=== PATIENT | female | born 1940 | race Caucasian/White ===

== ENCOUNTER 2019-05-22 23:48 | Inpatient (IN) ==
[2019-05-23] MEDS ORDERED: Potassium Chloride 20 MEQ, Lidocaine 1% 2 ML in 0.9 % Sodium Chloride 250 ML IVPB ONE (05:19)
[2019-05-23] MEDS ORDERED: Ondansetron 4 MG/2 ML VIAL IVP PRN ×2 (05:21→18:33)
[2019-05-23] MEDS ORDERED: Acetaminophen 325 MG TABLET PO PRN (05:21)
[2019-05-23] MEDS ORDERED: Naloxone 0.4 MG/ML INJ IVP PRN (05:21)
[2019-05-23] MEDS ORDERED: 0.9 % Sodium Chloride 1,000 ML IVC SCH (05:30)
[2019-05-23 06:15] LABS: Hematocrit 42.6 % (35.3-44.9); Hemoglobin 13.9 g/dL (11.5-15.4); Mean Corpuscular HGB Conc 32.6 g/dL (31.6-35.5); Mean Corpuscular Hemoglobin 29.3 pg (28.0-33.3); Mean Corpuscular Volume 89.7 fL (83.0-100.0); Mean Platelet Volume 10.7 fL (9.4-12.4); Platelet Count 131 K/mcL (140-400); Red Blood Count 4.75 M/mcL (3.82-4.97); Red Cell Distribution Width 13.3 % (11.5-14.5); White Blood Count 12.8 K/mcL (4.3-11.1)
[2019-05-23 06:45] LABS: BUN/Creatinine Ratio 18 (6-26); Blood Urea Nitrogen 11 mg/dL (8-23); Calcium 9.9 mg/dL (8.6-10.3); Carbon Dioxide 28 mEq/L (23-29); Chloride 102 mEq/L (98-107); Glucose 138 mg/dL (70-105); Osmolality,Calculated 288 (280-300); Potassium 4.8 mEq/L (3.5-5.1); Sodium 138 mEq/L (136-145); eGFR For African Americans > 60 (> 60); eGFR For Non-African Americans > 60 (> 60)
[2019-05-23] MEDS: tiZANidine 4 MG TABLET PO SCH ×3 (11:22→20:45)
[2019-05-23] MEDS ORDERED: tiZANidine 4 MG TABLET PO SCH (15:00)
[2019-05-23] MEDS: *HR* Heparin 5,000 UNIT/ML VIAL SQ SCH (16:25)
[2019-05-23] MEDS ORDERED: *HR* Promethazine 25 MG/ML VIAL IVP PRN (18:35)
[2019-05-24] MEDS: *HR* Heparin 5,000 UNIT/ML VIAL SQ SCH ×2 (05:51→17:35)
[2019-05-24 06:31] LABS: Hemoglobin 12.4 g/dL (11.5-15.4); Mean Corpuscular HGB Conc 32.6 g/dL (31.6-35.5); Mean Platelet Volume 10.5 fL (9.4-12.4); Platelet Count 177 K/mcL (140-400); Red Blood Count 4.13 M/mcL (3.82-4.97); Red Cell Distribution Width 13.6 % (11.5-14.5); White Blood Count 10.1 K/mcL (4.3-11.1)
[2019-05-24 06:40] LABS: INR 1.1; Prothrombin Time 12.2 Seconds (9.4-12.1)
[2019-05-24 06:49] LABS: BUN/Creatinine Ratio 21 (6-26); Blood Urea Nitrogen 13 mg/dL (8-23); Calcium 9.4 mg/dL (8.6-10.3); Carbon Dioxide 27 mEq/L (23-29); Chloride 101 mEq/L (98-107); Glucose 110 mg/dL (70-105); Osmolality,Calculated 277 (280-300); Potassium 4.2 mEq/L (3.5-5.1); Sodium 133 mEq/L (136-145); eGFR For African Americans > 60 (> 60); eGFR For Non-African Americans > 60 (> 60)
[2019-05-24] MEDS ORDERED: *HR* Succinylcholine 200 MG/10 ML VIAL IVP ONE (07:15)
[2019-05-24] MEDS ORDERED: Dexamethasone 4 MG/ML VIAL ONE (07:15)
[2019-05-24] MEDS ORDERED: Lidocaine -MPF 2% 2 ML VIAL ONE (07:15)
[2019-05-24] MEDS ORDERED: Ondansetron 4 MG/2 ML VIAL ONE (07:15)
[2019-05-24] MEDS ORDERED: *HR* FentaNYL (PF) 100 MCG/2 ML VIAL ONE (07:17)
[2019-05-24] MEDS ORDERED: *HR* Propofol 200 MG/20 ML VIAL IVP ONE (07:17)
[2019-05-24] MEDS ORDERED: ceFAZolin 2,000 MG in Water for inj. (sterile) 20 ML IVP ONE (08:20)
[2019-05-24] MEDS ORDERED: EPHEDrine 50 MG/ML VIAL ONE (08:35)
[2019-05-24] MEDS ORDERED: *HR* PHENYLEPHRINE 1,000 MCG/10 ML SYRINGE IVP ONE (08:37)
[2019-05-24] MEDS ORDERED: Ondansetron 4 MG/2 ML VIAL IVP ONE (08:50)
[2019-05-24] MEDS ORDERED: Albuterol 2.5 MG/3 ML NEBULIZER IH ONE (08:50)
[2019-05-24] MEDS ORDERED: amLODIPine 5 MG TABLET PO SCH (09:00)
[2019-05-24 09:34] LABS: Hematocrit 37.4 % (35.3-44.9); Hemoglobin 11.9 g/dL (11.5-15.4)
[2019-05-24] MEDS ORDERED: *HR* HYDROcodone/Acet 5/325 mg TABLET PO PRN (09:48)
[2019-05-24] MEDS ORDERED: Naloxone 0.4 MG/ML INJ IVP PRN (09:48)
[2019-05-24] MEDS ORDERED: Ondansetron 4 MG/2 ML VIAL IVP PRN (09:48)
[2019-05-24] MEDS ORDERED: Acetaminophen 325 MG TABLET PO PRN (09:48)
[2019-05-24] MEDS: tiZANidine 4 MG TABLET PO SCH ×3 (14:06→21:53)
[2019-05-24] MEDS ORDERED: 0.9 % Sodium Chloride 1,000 ML IVC SCH (20:00)
[2019-05-25 02:19] LABS: Hematocrit 33.9 % (35.3-44.9); Hemoglobin 10.9 g/dL (11.5-15.4); Mean Corpuscular HGB Conc 32.2 g/dL (31.6-35.5); Mean Corpuscular Hemoglobin 29.4 pg (28.0-33.3); Mean Corpuscular Volume 91.4 fL (83.0-100.0); Mean Platelet Volume 10.4 fL (9.4-12.4); Platelet Count 137 K/mcL (140-400); Red Blood Count 3.71 M/mcL (3.82-4.97); Red Cell Distribution Width 13.7 % (11.5-14.5); White Blood Count 8.2 K/mcL (4.3-11.1)
[2019-05-25 02:39] LABS: BUN/Creatinine Ratio 18 (6-26); Blood Urea Nitrogen 11 mg/dL (8-23); Calcium 8.5 mg/dL (8.6-10.3); Carbon Dioxide 27 mEq/L (23-29); Chloride 105 mEq/L (98-107); Glucose 116 mg/dL (70-105); Osmolality,Calculated 280 (280-300); Sodium 135 mEq/L (136-145); eGFR For African Americans > 60 (> 60); eGFR For Non-African Americans > 60 (> 60)
[2019-05-25] MEDS: *HR* Heparin 5,000 UNIT/ML VIAL SQ SCH ×2 (05:30→18:11)
[2019-05-25] MEDS: amLODIPine 5 MG TABLET PO SCH (09:06)
[2019-05-25] MEDS: tiZANidine 4 MG TABLET PO SCH ×3 (09:06→21:32)
[2019-05-26] MEDS: *HR* Heparin 5,000 UNIT/ML VIAL SQ SCH (05:52)
[2019-05-26 08:19] LABS: Hematocrit 33.6 % (35.3-44.9); Hemoglobin 11.1 g/dL (11.5-15.4)
[2019-05-26] MEDS: amLODIPine 5 MG TABLET PO SCH (08:54)
[2019-05-26] MEDS: tiZANidine 4 MG TABLET PO SCH (08:54)
[2019-05-26 10:38] VITALS: BP 123/65
== END 2019-05-26 13:10 | DRG 482 ==
LOC: 3NENU → SUATTDRO 05-23 05:21
PROVIDERS: ADMIT Internal Medicine Nephrology; ATTEND Internal Medicine